=== PATIENT | male | born 1950 | race Caucasian/White ===

== ENCOUNTER 2016-07-07 12:06 | Outpatient (CLI) | payer OTHER ==
[~2016-07-07 12:06] MED LIST: BUPIVACAINE HCL/EPINEPHRINE/PF 0.25% VIAL IM ONE; BUPIVACAINE HCL/PF 2.5 MG/ML 10ML VIAL IV ONE; KETAMINE HCL 200 MG/20 ML VIAL ONE; LIDOCAINE HCL/PF 2% 100 MG/5 ML VIAL IJ ONE; Lidocaine 1% 5ml(IM or SUTURE)(PAIN CLINIC) ONE; NORMAL SALINE 500 ML IV.SOLN IV ONE; PROPOFOL 200 MG/20 ML VIAL IV ONE; SALINE FLUSH 10 ML DISP.SYRIN IVF ONE; TRIAMCINOLONE ACETONID 40MG/ML VIAL ONE
--- NOTE | 2016-07-08 12:20 | GENERIC FACET RF ---
SUBJECTIVE: Mr. Cooper presents with recurrent right-sided low back pain. I performed a right L5-S1 facet injection and a right sacroiliac block at his initial presentation in my office and this gave him immediate 48 hours of relief; however, the symptoms are recurrent. At this point, I talked to him about a right radiofrequency neurolysis with monitored anesthesia care. I have also discussed bone marrow aspirate concentrate/stem cell injection for his severe right-sided sacroiliac joint pain. He had a fusion which extends throughout the lumbar spine at L4-L5 and L5-S1 and then rods and screws which progress to the thoracic spine in 2 separate segments. ANESTHESIA: Monitored anesthesia care. ANESTHESIOLOGIST: Gale Singh CRNA PROCEDURE: Sacral ala and S1 through S3 radiofrequency neurolysis with fluoroscopic guidance. DESCRIPTION OF PROCEDURE: Consent was obtained after risks were fully explained including bleeding, infection, nerve injury, and worsening of symptoms. The patient understood these risks and agreed to proceed. The patient was positioned prone on the fluoroscopic procedure table and sterile prep and drape were applied. With AP, oblique, and lateral fluoroscopic imaging, the sacral ala and S1 superior endplate was squared fluoroscopically and the sacral ala was identified. A 15 cm, 14-gauge RFK needle was then inserted at the right sacral ala to contact the sacral ala and was verified to be in position on AP and lateral imaging. Following this, needles were then placed at the lateral foramina of the S1, S2, and S3 neural foramen at the sacroiliac joint. The needle was then placed and a 50 Hertz stimulation was then effected with an RFK generator and no motor stimulation was obtained. Following this, each level was then anesthetized with lidocaine mixed with bupivacaine and triamcinolone acetate. Then 4 introducer probes were placed in the cannulas connected to an RFK generator and the generator was effected for a 2 minute lesion at 80 degrees C. The needles were rotated at 60 seconds for a radiofrequency neurolysis of the sacral ala, S1 , S2, and S3 on the right side. The patient tolerated the procedure well. There were no apparent complications. The needles were removed and a sterile dressing was applied. He was discharged home in good condition. ASSESSMENT: Right-sided spondylolytic back pain, status post sacral ala and S1 through S3 radiofrequency neurolysis. PLAN: We will plan today for radiofrequency neurolysis with monitored anesthesia care. FOLLOWUP: Return to clinic if problems develop or worsen. KISHORE
== END 2016-07-07 12:07 ==
LOC: OUT 12:06
PROVIDERS: ATTEND Anesthesiology Pain Medicine
DX: M54.5 Low back pain (principal)
CPT/HCPCS: J2001; J2704; J3301; J3490; J7060; 64635; 64636; 99214; S1016

== ENCOUNTER 2016-07-21 07:53 | Outpatient (CLI) | payer OTHER ==
--- NOTE | 2016-07-21 11:10 | PAIN CLINIC PROGRESS NOTES ---
REASON FOR VISIT: Mr. Cooper is followed up today at [facility]. Todd is a delightful 65-year-old white male who has a history of thoracolumbar fusion with instrumentation and fixation. He has fractured rods in his spine. I performed a radiofrequency ablation at the lumbosacral junction and his low back pain is better. He still cannot straighten up. He still remains on potent opiates. He is currently taking Embeda 80 mg daily with Percocet for break through and he says that this is controlling his pain symptoms. His activities are limited, both vocational and avocational. His pain control is improved. His functional ability still remains poor. There is no evidence of abuse or diversion. PLAN: Today, we will obtain a SOAPP-R score. I am going to continue him on 80 mg Embeda and titrate the Percocet dose down to 50 mg with a plan of increasing the Embeda to 100 mg b.i.d. at the next visit and coming off of the Percocet medication. I would like to obtain a CT or at least lumbar x-rays of the thoracic and lumbar spine and reevaluate the entire james and screw placements and james fracture. I have told him that with his Medicaid coverage that likely the [facility] would be the only care facility that could accomplish a revision of this hardware. At this point, he is not a candidate for an intrathecal pump until he can get Medicare coverage. He is understands. He is in agreement and we will obtain a SOAPP-R and imaging today. KISHORE
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
--- NOTE | 2016-07-21 17:25 | Diagnostic Imaging Report ---
[facility] [address] [facility] [address] Report Submission Date: Jul 21, 2016 3:15:32 PM CDT Patient Study Name: ADAMS ANGEL Date: Jul 21, 2016 9:23:04 AM CDT Modality Type: CR Gender: M Description: SPINE : 54 Institution: [facility] Physician: GRETCHEN BARNARD Thoracic spine 3 views Clinical history: Severe back pain Moderate thoracic spondylosis. Hardware in the lower thoracic spine T8 through L1. Films are somewhat suboptimally. Patient may require CT scan of the thoracic and lumbar spine Impression: Suboptimally films Moderate thoracic spondylosis Hardware in the lower thoracic spine, all components appear to be in good position . Electronically signed on Jul 21, 2016 3:15:32 PM CDT by: Toni NOVAK
== END 2016-07-21 07:55 ==
LOC: OUT 07:53
PROVIDERS: ATTEND Anesthesiology Pain Medicine
DX: M54.5 Low back pain (principal)
CPT/HCPCS: 72072; 72100; 99214

== ENCOUNTER 2016-11-21 13:22 | Outpatient (CLI) | payer OTHER ==
[~2016-11-21 13:22] MED LIST changes: -BUPIVACAINE HCL/EPINEPHRINE/PF 0.25% VIAL IM ONE; -KETAMINE HCL 200 MG/20 ML VIAL ONE; -LIDOCAINE HCL/PF 2% 100 MG/5 ML VIAL IJ ONE; -NORMAL SALINE 500 ML IV.SOLN IV ONE; -PROPOFOL 200 MG/20 ML VIAL IV ONE; -SALINE FLUSH 10 ML DISP.SYRIN IVF ONE
--- NOTE | 2016-11-25 08:30 | KNEE INJECTION WITH FLUORO ---
INTERVAL HISTORY: Mr. Cooper follows up with me today. Mr. Cooper underwent repeat lumbar decompression by Dr. Porras at the [facility]. He said that the surgery worked great and he is no longer having any back or radiating leg pain. He did have a postop bowel obstruction and ended up with emergency bowel surgery and a tracheostomy. In the interim, he is now off of opiate pain medications. He comes in today complaining of bilateral knee pain and he wants something for pain. I examined his knees. He is stable. He is swollen. He has no Drawer signs. He does have swelling symptoms consistent with osteoarthritis (OA). At this point, I am going to plan on placing bilateral knee steroid injections and I will give him tramadol for pain control. I am not going to support going back to potent opiates. PROCEDURE: Bilateral knee joint injection with fluoroscopy. DESCRIPTION OF PROCEDURE: The risks and benefits of the injection were discussed with the patient, including the risks of infection, bleeding, and nerve injury. Furthermore, I discussed the risk of steroid exposure causing hyperglycemia, hypertension, osteoporosis, or increased infectious risks. The patient understood these risks and agreed to proceed. Consent was obtained. The patient was placed in the supine position on the fluoroscopy table with the knees slightly flexed. The left knee was prepared. AP and oblique fluoroscopic viewing was used for visualizing the knee joint. A 22-gauge, 3.5 spinal needle was introduced into the joint space from an anteromedial approach under direct fluoroscopic guidance. It was verified that there was no aspiration of fluid or blood. Omnipaque 240 myelogram dye was injected and noted to course within the joint space. Triamcinolone acetate diluted in 0.25% bupivacaine and 1% Lidocaine was subsequently injected into the joint space. The stylette was replaced into the needle and the needle was withdrawn from the knee. The skin was cleaned. This exact procedure was repeated at the opposite knee joint. The patient tolerated the injections without complications. A band-aid was placed over the injection sites. The patient was monitored for 20 minutes following the procedure. Vital signs remained stable throughout this period. The patient reported a pattern of light touch sensory loss in the distribution of the ilioinguinal nerve. No significant motor loss was noted. ASSESSMENT: Osteoarthritis of both knees. PLAN: Bilateral knee joint injection with fluoroscopy. FOLLOW UP: Return to clinic if problems develop or worsen. KISHORE
== END 2016-11-21 13:24 ==
LOC: OUT 13:22
PROVIDERS: ATTEND Anesthesiology Pain Medicine
DX: M17.0 Bilateral primary osteoarthritis of knee (principal)
CPT/HCPCS: 20611; 99213; G0463; J3301; J3490

== ENCOUNTER 2016-12-22 12:05 | Outpatient (CLI) | payer OTHER ==
--- NOTE | 2016-12-23 14:49 | KNEE INJECTION WITH FLUORO ---
SUBJECTIVE: Mr. Cooper follows up today with bilateral knee pain, osteoarthritis, and degenerative joint disease of the knees. The tramadol is not controlling his pain symptoms. I informed I am not going to go to potent opiates but I would provide with Tylenol No. 3 today in clinic. He is in agreement. He is here for a trial of Synvisc-One injection. I told him this can be repeated every 6 months. I also described a knee injection with Amniox and bone marrow aspirate concentrate. Plan today for bilateral Synvisc-One injections with fluoroscopic guidance. PROCEDURE: Bilateral Synvisc-One knee joint injections with fluoroscopic guidance. DESCRIPTION OF PROCEDURE: The risks and benefits of the injection were discussed with the patient, including the risks of infection, bleeding, and nerve injury. Furthermore, I discussed the risk of steroid exposure causing hyperglycemia, hypertension, osteoporosis, or increased infectious risks. The patient understood these risks and agreed to proceed. Consent was obtained. The patient was placed supine on the fluoroscopic procedure table with the knees slightly flexed. The left knee was prepared with Chloraprep. Under fluoroscopic imaging, the left knee joint was identified and topical anesthetic spray was used to anesthetize the skin. A 23-gauge, 1-1/2 inch spinal needle was then advanced in the medial compartment of the knee just medial to the patellar tendon. With the needle in place, 1 vial of Synvisc-One (6 mL) was injected in the left knee. The needle was removed and a dressing was applied. In this exact same fashion, the right was then injected with another 1 vial (6 mL) of Synvisc-One. The patient tolerated the procedure well. There were no apparent complications. A band-aid was placed over the injection sites. ASSESSMENT: 1. Osteoarthritis of the knees. 2. Degenerative joint disease. PLAN: Bilateral Synvisc-One knee joint injections with fluoroscopic guidance. FOLLOW UP: Return to clinic if problems develop or worsen. KISHORE
== END 2016-12-22 13:00 ==
LOC: OUT 12:05
PROVIDERS: ATTEND Anesthesiology Pain Medicine
DX: M17.0 Bilateral primary osteoarthritis of knee (principal)
CPT/HCPCS: 20610; 77002; 99214